=== PATIENT | female | born 1975 | race African-American/Black ===

== ENCOUNTER 2017-05-24 08:16 | Emergency (ER) | payer SELFPAY ==
[~2017-05-24] VITALS: Ht 167.6 cm; Wt 86.0 kg
[~2017-05-24 08:16] MED LIST: AMOXICILLIN500 MG PO; CHLORTHALIDONE25 MG OR; CIPROFLOXACN500 MG PO; LISINOPRIL10 MG PO; LISINOPRIL20 MG PO; LORTAB 10 PO; NO MEDS; NORCO1 TA1 PO; NORVASC5 M1 PO; PERCOCET 5/321 COMBO PO; PREVPAC OR; ULTRAM50 M1 PO; ZOFRAN ODT4 MG PO
[2017-05-24] MEDS ORDERED: SERTRALINE HCL50 MG PO (08:28)
[2017-05-24] MEDS ORDERED: TRAMADOL HCL50 MG PO (08:28)
[2017-05-24] MEDS ORDERED: RISPERIDONE2 MG PO (08:29)
[2017-05-24] MEDS ORDERED: ALL DAY ALLG10 MG PO (08:30)
[2017-05-24] MEDS ORDERED: FERR SULFATE325 MG PO (08:31)
[2017-05-24] MEDS ORDERED: AMLODIPINE5 MG PO (08:32)
[2017-05-24] MEDS ORDERED: LORTAB 5-325 MG1 TAB PO (08:44)
[2017-05-24 08:48] VITALS: BP 144/96
== END 2017-05-24 08:55 | disposition home or self-care (01) | DRG 93 ==
LOC: ED 08:16
DX: G89.29 Other chronic pain (principal); M25.551 Pain in right hip; I10 Essential (primary) hypertension; F31.9 Bipolar disorder, unspecified

== ENCOUNTER 2017-06-16 07:54 | Emergency (ER) | payer SELFPAY ==
[~2017-06-16] VITALS: Ht 167.6 cm; Wt 49.5 kg
[~2017-06-16 07:54] MED LIST changes: +ALL DAY ALLG10 MG PO; +AMLODIPINE5 MG PO; +FERR SULFATE325 MG PO; +LORTAB 5-325 MG1 TAB PO; +RISPERIDONE2 MG PO; +SERTRALINE HCL50 MG PO; +TRAMADOL HCL50 MG PO
[2017-06-16] MEDS ORDERED: MOTRIN800 MG PO (09:31)
[2017-06-16 10:34] VITALS: BP 185/99
== END 2017-06-16 10:35 | disposition home or self-care (01) | DRG 556 ==
LOC: ED 07:54
DX: M79.672 Pain in left foot (principal); R22.42 Localized swelling, mass and lump, left lower limb

== ENCOUNTER 2019-01-14 01:23 | Emergency (ER) | payer OTHER ==
[~2019-01-14] VITALS: Ht 167.6 cm; Wt 81.8 kg
[~2019-01-14 01:23] MED LIST changes: +MOTRIN800 MG PO
[2019-01-14] MEDS ORDERED: IBUPROFEN600 MG PO (03:35)
[2019-01-14 06:25] VITALS: BP 138/91
== END 2019-01-14 06:33 | disposition home or self-care (01) | DRG 563 ==
LOC: ED 01:23
DX: S39.012A Strain of muscle, fascia and tendon of lower back, initial encounter (principal); S76.011A Strain of muscle, fascia and tendon of right hip, initial encounter; I10 Essential (primary) hypertension; F17.210 Nicotine dependence, cigarettes, uncomplicated; V49.50XA Passenger injured in collision with unspecified motor vehicles in traffic accident, initial encounter

== ENCOUNTER 2019-09-01 13:13 | Emergency (ER) | payer OTHER ==
[~2019-09-01] VITALS: Ht 167.6 cm; Wt 91.8 kg
[~2019-09-01 13:13] MED LIST changes: +IBUPROFEN600 MG PO
[2019-09-01 13:20] VITALS: BP 149/100
[2019-09-01] MEDS ORDERED: PREDNISONE10 MG PO (14:12)
[2019-09-01] MEDS ORDERED: ACID REDUCER20 MG PO (14:12)
[2019-09-01] MEDS ORDERED: KEFLEX500 M1 PO (14:13)
== END 2019-09-01 14:25 | disposition home or self-care (01) ==
LOC: ED 13:13
DX: T78.49XA Other allergy, initial encounter (principal); L03.811 Cellulitis of head [any part, except face]

== ENCOUNTER 2022-11-14 14:35 | Emergency (ER) | payer OTHER ==
[~2022-11-14] VITALS: Ht 167.6 cm; Wt 89.5 kg
[~2022-11-14 14:35] MED LIST changes: +ACID REDUCER20 MG PO; +KEFLEX500 M1 PO; +PREDNISONE10 MG PO
[2022-11-14 14:47] VITALS: BP 184/108
[2022-11-14 15:00] VITALS: BP 155/99
[2022-11-14] MEDS ORDERED: ELIQUIS STARTER5 MG PO (16:21)
[2022-11-14 16:58] LABS: HEMATOCRIT 30.7 % (37.0-47.0); HEMOGLOBIN 10.1 g/dl (12.0-16.0)
[2022-11-14 17:08] VITALS: BP 184/108
== END 2022-11-14 17:16 | disposition home or self-care (01) ==
LOC: ED 14:35
PROVIDERS: Family Medicine
DX: I82.411 Acute embolism and thrombosis of right femoral vein (principal); I82.431 Acute embolism and thrombosis of right popliteal vein; I10 Essential (primary) hypertension; F31.9 Bipolar disorder, unspecified; F17.210 Nicotine dependence, cigarettes, uncomplicated; Z98.890 Other specified postprocedural states

== ENCOUNTER 2022-12-10 10:28 | Emergency (ER) | payer OTHER ==
[~2022-12-10] VITALS: Ht 167.6 cm; Wt 85.9 kg
[~2022-12-10 10:28] MED LIST changes: +ELIQUIS STARTER5 MG PO
[2022-12-10 13:12] VITALS: BP 157/104
== END 2022-12-10 13:30 | disposition home or self-care (01) ==
LOC: ED 10:28
DX: I82.401 Acute embolism and thrombosis of unspecified deep veins of right lower extremity (principal); I10 Essential (primary) hypertension; F31.9 Bipolar disorder, unspecified; F17.200 Nicotine dependence, unspecified, uncomplicated; Z96.641 Presence of right artificial hip joint

== ENCOUNTER 2024-11-17 08:32 | Emergency (ER) | payer OTHER ==
[~2024-11-17] VITALS: Ht 167.6 cm; Wt 91.0 kg
[~2024-11-17 08:32] MED LIST changes: +MEDDOSEPAK PO; +VOLTAREN1%GEL TOP
[2024-11-17 08:46] VITALS: BP 138/106
[2024-11-17] MEDS ORDERED: LIDOcaine HCl 1% (Local Anesth.) 20 ML VIAL STI STA (08:51)
[2024-11-17] MEDS ORDERED: POVIDONE IODINE 0.5 OZ/BTL TOP STA (08:51)
[2024-11-17 09:00] VITALS: BP 148/98
[2024-11-17 09:15] VITALS: BP 153/118
[2024-11-17] MEDS ORDERED: BACTRIM DS1 TAB PO (09:25)
[2024-11-17 09:38] VITALS: BP 153/118
== END 2024-11-17 09:40 | disposition home or self-care (01) ==
LOC: ED 08:32
DX: L02.412 Cutaneous abscess of left axilla (principal); I10 Essential (primary) hypertension; F31.9 Bipolar disorder, unspecified